=== PATIENT | female | born 1975 | race Caucasian/White ===

== ENCOUNTER 2016-12-14 16:16 | Emergency (ER) | payer OTHER, BC ==
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
[2016-12-14] MEDS ORDERED: Diphtheria,Pertussis(Acell),Tetanus Vaccine 0.5 ML Syringe IM ONE (16:36)
[2016-12-14 17:19] VITALS: BP 133/84
== END 2016-12-14 17:15 | disposition home or self-care (01) ==
LOC: MW.ED 16:16
DX: S01.01XA Laceration without foreign body of scalp, initial encounter (principal); S09.90XA Unspecified injury of head, initial encounter; Z23 Encounter for immunization; W20.8XXA Other cause of strike by thrown, projected or falling object, initial encounter
CPT/HCPCS: 90471; 90715; 99282; 99282-25